=== PATIENT | female | born 1980 | race Caucasian/White ===

== ENCOUNTER 2024-10-04 17:09 | Emergency (ER) | payer MEDICAID, OTHER ==
[~2024-10-04] VITALS: Ht 154.9 cm; Wt 49.3 kg
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
[2024-10-04] MEDS: traMADol HCL 50 MG TAB PO ONE (18:04)
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
[2024-10-04] MEDS ORDERED: HYDR-4902 PO (18:28)
[2024-10-04 18:38] VITALS: BP 101/70; PULSE 84; RESP 18; O2SAT 97
== END 2024-10-04 18:41 | disposition home or self-care (01) ==
LOC: ER 17:09
DX: S16.1XXA Strain of muscle, fascia and tendon at neck level, initial encounter (principal); S39.012A Strain of muscle, fascia and tendon of lower back, initial encounter; Y99.8 Other external cause status; V89.2XXA Person injured in unspecified motor-vehicle accident, traffic, initial encounter; Y93.89 Activity, other specified; Y92.410 Unspecified street and highway as the place of occurrence of the external cause; Z90.49 Acquired absence of other specified parts of digestive tract
CPT/HCPCS: 72040; 72100